=== PATIENT | male | born 1985 | race Hispanic/Latino ===

== ENCOUNTER → 2019-06-06 | Outpatient (CLI) | payer OTHER | END | disposition home or self-care (01) | LOC: RAH 14:37 → EEVIPCON 14:37 | PROVIDERS: ATTEND Internal Medicine | DX: S02.2XXA Fracture of nasal bones, initial encounter for closed fracture (principal); M79.89 Other specified soft tissue disorders; S00.33XA Contusion of nose, initial encounter; X58.XXXA Exposure to other specified factors, initial encounter; Y93.89 Activity, other specified; Y92.89 Other specified places as the place of occurrence of the external cause; Y99.8 Other external cause status | CPT/HCPCS: 70100; 70140; 70160 ==